=== PATIENT | female | born 2000 | race Hispanic/Latino ===

== ENCOUNTER 2021-01-03 16:21 | Emergency (ER) | payer OTHER ==
[2021-01-03 16:44] LABS: Urine Blood 3+ (Negative); Urine Glucose Negative (Negative); Urine Protein Negative (Negative); Urine Specific Gravity 1.015 (1.005-1.030); Urine pH 6.5 (5.0-7.0)
[2021-01-03 17:17] LABS: Urine Amorphous Sediment 1+ /HPF (NONE SEEN); Urine Bacteria <20 /HPF (<20); Urine RBC <5 /HPF (NONE SEEN)
--- NOTE | 2021-01-03 17:25 | RAD REPORT ---
EXAM DESCRIPTION: CT - Stone Protocol - 01/03/2021 5:18 pm CLINICAL HISTORY: Flank pain. FLANK PAIN COMPARISON: No comparisons TECHNIQUE: Axial images were obtained without oral or IV contrast. Lack of contrast limits solid org an and vascular assessment. The [id number] spans the entirety of the system partially obscuring uppermost abdomen and lung bases. Coronal reformatted images were obtained and reviewed. All CT scans are performed using dose optimization technique as appropriate and may include automated exposure control or mA/KV adjustment according to patient size. FINDINGS: The lower lung monae are clear. Imaged portions of the liver and spleen show no suspicious findings on non-contrast imaging. The panc reas and adrenal glands are normal. No pathologic lymphadenopathy in the abdomen or pelvis. Small 2 mm calculus is present superior pole right kidney. Otherwise, no urinary tract stone or hydro nephrosis. No bowel obstruction, free air, free fluid or abscess. Normal appendix noted. No significant bony abnormality. IMPRESSION: Nonobstructive 2 mm calculus superior right kidney.
--- NOTE | 2021-01-03 17:44 | ER ---
Nurse's Notes [facility] Name: Stephie Etienne Age: 20 yrs Sex: Female : 2000 Arrival Date: 01/03/2021 Time: 16:21 Bed 20 Private MD: Franklin Jeffery W Diagnosis: Left flank pain Presentation: 01/03 16:34 Chief complaint: Patient states: left low back/flank pain since last night , no urinary iw s/s, had similar symptoms a month ago and she took medicine and it went away. Coronavirus screen: At this time, the client does not indicate any symptoms associated with coronavirus-19. Ebola Screen: Patient negative for fever greater than or equal to 101.5 degrees Fahrenheit, and additional compatible Ebola Virus Disease symptoms Patient denies exposure to infectious person. Patient denies travel to an Ebola-affected area in the 21 days before illness onset. No symptoms or risks identified at this time. Initial Sepsis Screen: Does the patient meet any 2 criteria? No. Patient's initial sepsis screen is negative. Does the patient have a suspected source of infection? No. Patient's initial sepsis screen is negative. Risk Assessment: Do you want to hurt yourself or someone else? Patient reports no desire to harm self or others. Onset of symptoms was January 02, 2021. 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 - Social history:: Smoking status: Patient denies any tobacco usage or history of. Screenin:48 Abuse screen: Denies threats or abuse. Nutritional screening: No deficits noted. vg1 Tuberculosis screening: No symptoms or risk factors identified. Fall Risk No fall in past 12 months (0 pts). No secondary diagnosis (0 pts). No IV (0 pts). Ambulatory Aid- None/Bed Rest/Nurse Assist (0 pts). Gait- Normal/Bed Rest/Wheelchair (0 pts) Mental Status- Oriented to own ability (0 pts). Total Delgadillo Fall Scale indicates No Risk (0-24 pts). Assessment: 16:38 General: Appears in no apparent distress. comfortable, Behavior is calm, cooperative. vg1 Pain: Complains of pain in Left Flank Pain currently is 4 out of 10 on a pain scale. Pain began 1 day ago. Neuro: Level of Consciousness is awake, alert, obeys commands, Oriented to person, place, time, situation. Cardiovascular: Patient's skin is warm and dry. Respiratory: Airway is patent Respiratory effort is even, unlabored. GI: Patient currently denies diarrhea, nausea, vomiting. : Denies burning with urination, pain urinary frequency. EENT: No signs and/or symptoms were reported regarding the EENT system. Derm: Skin is intact, is healthy with good turgor. Musculoskeletal: Circulation, motion, and sensation intact. 18:45 Reassessment: Patient appears in no apparent distress at this time. No changes from vg1 previously documented assessment. Patient and/or family updated on plan of care and expected duration. Pain level reassessed. Patient is alert, oriented x 3, equal unlabored respirations, skin warm/dry/pink. Vital Signs: 16:34 BP 145 / 85; Pulse 95; Resp 16; Temp 98.5; Pulse Ox 100% on R/A; Weight 81.65 kg; iw Height 5 ft. 4 in. (162.56 cm); Pain 8/10; 18:45 BP 136 / 78; Pulse 90; Resp 14; Pulse Ox 98% on R/A; vg1 16:34 Body Mass Index 30.90 (81.65 kg, 162.56 cm) iw ED Course: 16:21 Patient arrived in ED. am2 16:22 Franklin Jeffery MD is Private Physician. am2 16:28 Dorothy Luis F[facility]-C [facility]. kb 16:28 Dakotah Duncan MD is Attending Physician. kb 16:30 Makayla Oliveros, LUCIO is Primary Nurse. vg1 16:35 Triage completed. iw 16:36 Arm band placed on. iw 16:48 Urine collected: clean catch specimen, clear. vg1 16:49 Patient has correct armband on for positive identification. Bed in low position. Call vg1 light in reach. Side rails up X 1. 17:18 CT Stone Protocol In Process Unspecified. EDMS 18:48 No provider procedures requiring assistance completed. Patient did not have IV access vg1 during this emergency room visit. Administered Medications: No medications were administered Outcome: 17:43 Discharge ordered by . mona 18:49 Discharged to home ambulatory. vg1 18:49 Condition: stable 18:49 Discharge instructions given to patient, Instructed on discharge instructions, follow up and referral plans. Demonstrated understanding of instructions, follow-up care. 18:49 Patient left the ED. vg1 Signatures: Dispatcher [employer] EDMS Dorothy Luis, BODY ENGINEER-C BODY ENGINEER-Alecia Augustin, RN RN Laura Hicks Victoria, RN RN vg1
--- NOTE | 2021-01-03 17:44 | EDPHYS ---
Physician Documentation [facility] Name: Stephie Etienne Age: 20 yrs Sex: Female : 2000 Arrival Date: 01/03/2021 Time: 16:21 Bed 20 Private MD: Franklin Jeffery W ED Physician Dakotah Duncan HPI: 01/03 20:38 This 20 yrs old Female presents to ER via Ambulatory with complaints of Flank kb Pain - left. 20:38 The patient complains of pain in the left flank. The pain does not radiate. Onset: The kb symptoms/episode began/occurred yesterday. Modifying factors: The symptoms are alleviated by nothing. the symptoms are aggravated by nothing. Associated signs and symptoms: The patient has no apparent associated signs or symptoms. Severity of pain: At its worst the pain was moderate in the emergency department the pain is unchanged. The patient has not experienced similar symptoms in the past. The patient has not recently seen a physician. 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 - Social history:: Smoking status: Patient denies any tobacco usage or history of. ROS: 20:37 Constitutional: Negative for fever, chills, and weight loss. kb 20:37 : Positive for flank pain. 20:37 All other systems are negative. Exam: 20:37 Constitutional: This is a well developed, well nourished patient who is awake, alert, kb and in no acute distress. Head/Face: Normocephalic, atraumatic. ENT: Moist Mucous membranes Cardiovascular: Regular rate and rhythm with a normal S1 and S2. No gallops, murmurs, or rubs. No pulse deficits. Respiratory: Respirations even and unlabored. No increased work of breathing, no retractions or nasal flaring. Abdomen/GI: Soft, non-tender. No distention Skin: Warm, dry with normal turgor. Normal color. MS/ Extremity: Pulses equal, no cyanosis. Neurovascular intact. Full, normal range of motion. Neuro: Awake and alert, GCS 15, oriented to person, place, time, and situation. Moves all extremities. Normal gait. Psych: Awake, alert, with orientation to person, place and time. Behavior, mood, and affect are within normal limits. 20:37 Back: CVA tenderness, that is mild, is noted on the left. Vital Signs: 16:34 BP 145 / 85; Pulse 95; Resp 16; Temp 98.5; Pulse Ox 100% on R/A; Weight 81.65 kg; iw Height 5 ft. 4 in. (162.56 cm); Pain 8/10; 18:45 BP 136 / 78; Pulse 90; Resp 14; Pulse Ox 98% on R/A; vg1 16:34 Body Mass Index 30.90 (81.65 kg, 162.56 cm) iw MDM: 16:28 Patient medically screened. kb 18:19 Data reviewed: vital signs, nurses notes. Data interpreted: Pulse oximetry: on room air kb is 100 %. Interpretation: normal. Counseling: I had a detailed discussion with the patient and/or guardian regarding: the historical points, exam findings, and any diagnostic results supporting the discharge/admit diagnosis, lab results, radiology results, the need for outpatient follow up, a family practitioner, to return to the emergency department if symptoms worsen or persist or if there are any questions or concerns that arise at home. 01/03 16:31 Order name: Urine Microscopic Only; Complete Time: 17:19 kb 01/03 16:44 Order name: Urine Dipstick-Ancillary; Complete Time: 16:56 EDMS 01/03 16:31 Order name: Urine Test (obtain specimen); Complete Time: 16:44 kb 01/03 16:31 Order name: Urine Dipstick-Ancillary (obtain specimen); Complete Time: 16:44 kb 01/03 16:57 Order name: CT Stone Protocol; Complete Time: 17:29 kb Administered Medications: No medications were administered Disposition: 01/03/21 17:43 Discharged to Home. Impression: Left flank pain. - Condition is Stable. - Discharge Instructions: Flank Pain, [id number]. - Medication Reconciliation Form, Thank You Letter, Antibiotic Education, Prescription Opioid Use, Work release form form. - Follow up: Emergency Department; When: As needed; Reason: Worsening of condition. Follow up: Private Physician; When: 2 - 3 days; Reason: Recheck today's complaints, Continuance of care, Re-evaluation by your physician. Addendum: 01/06/2021 11:16 Co-signature as Attending Physician, Dakotah Duncan MD I agree with the assessment and k dr plan of care. Signatures: Dispatcher [employer] EDMI Dorothy Luis, FIRST CRUSHER-C FIRST CRUSHER-Ckb Dakotah Duncan MD MD [facility] Alecia Donaldson, RN RN iw Makayla Oliveros RN RN vg1 Corrections: (The following items were deleted from the chart) 01/03 18:49 17:43 01/03/2021 17:43 Discharged to Home. Impression: Left flank pain. Condition is vg1 Stable. Forms are Medication Reconciliation Form, Thank You Letter, Antibiotic Education, Prescription Opioid Use. Follow up: Emergency Department; When: As needed; Reason: Worsening of condition. Follow up: Private Physician; When: 2 - 3 days; Reason: Recheck today's complaints, Continuance of care, Re-evaluation by your physician. kb
[2021-01-03 19:24] VITALS: TEMP 98.5
[2021-01-03 19:25] VITALS: BP 136/78; O2SAT 98
== END 2021-01-03 18:49 | disposition home or self-care (01) ==
LOC: ER 16:21
DX: R10.9 Unspecified abdominal pain (principal)
CPT/HCPCS: 74176; 76377; 81003; 81015; 99283

== ENCOUNTER 2022-08-22 11:09 | Inpatient (IN) | payer OTHER ==
[2022-08-19 12:49] LABS: SARS-CoV-2 Antigen Rapid Res Negative (Negative)
[2022-08-22] MEDS ORDERED: Ringers Lactate 1,000 ML IV PRN (11:57)
[2022-08-22] MEDS ORDERED: CARBOPROST TROME 250 MCG/ML IM PRN ×2 (11:57→19:47)
[2022-08-22] MEDS ORDERED: METHYLERGONOVINE 0.2MG/ML AMP IM PRN ×2 (11:57→19:47)
[2022-08-22] MEDS ORDERED: BUTORPHANOL 1 MG/ML INJ IV PRN (11:57)
[2022-08-22] MEDS ORDERED: PROMETHAZINE INJ 25 MG/ML AMP IM PRN (11:57)
[2022-08-22] MEDS ORDERED: ROPIVACAINE HCL 0.2% 20ML AMP IV ONE (12:00)
[2022-08-22] MEDS ORDERED: FENTANYL CITR 100 MCG/2 ML IV ONE (12:00)
[2022-08-22] MEDS ORDERED: OXYTOCIN/LR 20 UNIT/1,000 ML BAG IV SCH (12:00)
[2022-08-22] MEDS ORDERED: Ringers Lactate 1,000 ML IV SCH (12:00)
[2022-08-22 12:06] VITALS: BMI 37.8
[2022-08-22] MEDS ORDERED: ROPIVACAINE 0.2% (200 MG/100 ML) BAG EP ONE (12:30)
[2022-08-22 12:43] LABS: Absolute Lymphocytes (CBC) 1.2 K/uL (0.7-4.9); Hematocrit 32.6 % (36.0-45.0); Lymphocytes % 11.5 % (15.3-44.8); MCV 81.1 fL (80-100); MPV 8.5 fL (7.6-11.3); RBC Red Blood Cell Count 4.02 M/uL (3.86-4.86)
[2022-08-22] MEDS ORDERED: BUPIVACAINE 0.25% PF 30 ML VIAL ONE (13:52)
[2022-08-22] MEDS ORDERED: FENTANYL/BUPIVACAINE/NS/PF 200 MCG/100 ML BAG EP PRN (13:56)
[2022-08-22] MEDS ORDERED: BUPIVACAINE 0.25% PF 10 ML VIAL ONE (14:20)
[2022-08-22 15:35] LABS: Hepatitis B surface AG Interp. Nonreactive (Nonreactive)
[2022-08-22] MEDS ORDERED: miSOPROStoL 100 MCG TAB ONE (18:03)
[2022-08-22] MEDS ORDERED: ONDANSETRON 4 MG (ODT) TAB PO PRN (19:47)
[2022-08-22] MEDS ORDERED: Oxycodone HCl/Acetaminophen 1 TAB TAB PO PRN ×2 (19:47→19:56)
--- NOTE | 2022-08-22 20:20 | DN ---
Date of Procedure: 08/22/2022 Surgeon: Niall Tyler Attending Physician: Efrem Baxter MD. Covering Admitting Physician: Dr. Niall Tyler. Diagnoses: 1.Intrauterine 39 weeks of gestation, delivered. 2.History of -induced hypertension. 3.Active phase of labor. 4.Single live . Summary: She gave to a male baby, scores 9 and 9, weight 8 pounds 3 ounces, 19-1/2 inche s long. time 1857 hours. Midline episiotomy preformed and repaired. Estimated Blood Loss: 400 cc. Procedure In Detail: Stephie Etienne is a 21-year-old G1, P0 female, 39 weeks of pregnanc y, has early long-time care with Dr. Baxter. She came into Labor Room early in the morning f or assessment and history of -induced hypertension, rule out preeclampsia. CBC showin g hemoglobin of 10.4, liver enzymes and platelet count were all within the desirable limits and no pr otein. heart tracing was normal and reactive, and patient has some irregular contractions. Sh chris was in early labor 3 cm. No further change. Therefore, she was sent home. However, quickly, she made a turn around and showed up in labor room with more labor distress. I was called in to see her re-evaluate it and showing that she progressed into active phase of labor. Therefore, she was admitt ed. She requested no stimulation with Pitocin and wanted to go naturally. However, she does desire epidural regional anesthesia. After the admission, she was allowed to have her epidural, and later, I have found that her cervix progressed to a 5 cm with a bulging membrane and around 1515 hours, I cr eated artificial rupture of membrane showing moderate meconium staining. heart tones remained to be category 1. No problem contraction about every 3 minutes apart. She labored in the next few h ours normally and she reached complete cervical dilatation late afternoon and ready for second stage of labor. Her second stage of labor was very quick within 30 minutes and her legs were placed up in stirrups. Vaginal area prepped and washed by using diluted Betadine solution. Then, she was draped in a sterile fashion. With maternal pushes, baby presented in MARTIR and then OA position and . Perineum felt tight, therefore, midline episiotomy performed. Within next few pushes, baby's head was able to crown and deliver. There was no nuchal cord. Left shoulder delivered first followed by the right shoulder, body, and delivery completed at 1857. It was a boy baby, Apgars 9 and 9. Weight 8 pounds 3 ounces, 19 and 1/2 inches long. Cord was clamped and cut. Placenta delivered intact in Schultze presentation. The midline episiotomy repaired with a 2-0 chromic suture in a usual running fashion. Aggressive fundal massage was done . There were no complications. BW/MODL Voice ID: [id number] Report ID: [id number]
[2022-08-22 21:00] LABS: RPR (Rapid Plasma Reagin) NON-REACT (NON-REACT)
[2022-08-22] MEDS: IBUPROFEN 600 MG TAB PO PRN (22:35)
[2022-08-23] MEDS: IBUPROFEN 600 MG TAB PO PRN ×2 (09:00→14:41)
[2022-08-23 19:56] VITALS: BP 133/80; TEMP 99.1
== END 2022-08-23 19:55 | disposition home or self-care (01) | DRG 807 ==
LOC: 2ND-WC 11:09
PROVIDERS: ADMIT Obstetrics & Gynecology; ATTEND Obstetrics & Gynecology
PROC: 10E0XZZ Delivery of Products of Conception, External Approach (ICD-10-PCS; principal; 2022-08-22)
PROC: 10907ZC Drainage of Amniotic Fluid, Therapeutic from Products of Conception, Via Natural or Artificial Opening (ICD-10-PCS; 2022-08-22)
PROC: 0W8NXZZ Division of Female Perineum, External Approach (ICD-10-PCS; 2022-08-22)
DX: O77.0 Labor and delivery complicated by meconium in amniotic fluid (principal); Z37.0 Single live birth; Z20.822 Contact with and (suspected) exposure to COVID-19; Z3A.39 39 weeks gestation of pregnancy
CPT/HCPCS: 36415; 80048; 80076; 81001; 84550; 85014; 85018; 85025; 85610; 85730; 86592; 86901; 87340; 87811; J0595; J2210; J2590; J2795; J3010; J7120